=== PATIENT | female | born 1990 | race African-American/Black ===

== ENCOUNTER 2018-04-15 22:34 | Emergency (ER) | payer SELFPAY | END 2018-04-16 00:58 | disposition left against medical advice (07) | LOC: M ED 22:34 | DX: Z53.20 Procedure and treatment not carried out because of patient's decision for unspecified reasons (principal) ==

== ENCOUNTER 2018-08-05 13:43 | Outpatient (CLI) | payer OTHER, SELFPAY ==
[~2018-08-05] VITALS: Ht 157.5 cm; Wt 101.4 kg
[~2018-08-05 13:43] MED LIST: PREN1TAB26 PO
[2018-08-05 13:53] VITALS: BP 120/62
== END 2018-08-05 15:11 | disposition home or self-care (01) ==
LOC: M LDO 13:43
PROVIDERS: ATTEND Obstetrics & Gynecology
DX: O47.1 False labor at or after 37 completed weeks of gestation (principal); Z3A.39 39 weeks gestation of pregnancy
CPT/HCPCS: 59025; G0378; G0463

== ENCOUNTER 2018-08-07 05:14 | Inpatient (IN) | payer OTHER ==
[2018-08-07] VITALS (106 sets, daily range): BP systolic 95–148; BP diastolic 53–92
[2018-08-07] MEDS ORDERED: PENICILLIN G POTASSIUM IV 5 MU in D5W MINI-BAG PLUS 100 ML IV STA (06:12)
[2018-08-07] MEDS ORDERED: LACTATED RINGER'S 1000 ML IV STA (06:12)
--- NOTE | 2018-08-07 06:37 | HPEPDOC ---
Obstetrical History & Physical General Date of Admission Aug 07, 2018 at 06:08 History of Present Illness 28 yo at 39+6 weeks by LMP of 01Nov2017 c/w 1st trimester US presents to L& D with regular, painful contractions that have been worsening since 299. She denies any vaginal bleeding or discharge. She endorses excellent movement. Chief Complaint: Contractions, term Information Provided By: Patient Age: 28 : 1 Term: 0 Pre-term: 0 Abortions: 0 Livin Care Care: Good Care Dating Final EDC: Aug 08, 2018 Final EDC for Daily Update: Aug 08, 2018 Final EDC by: LMP LMP: Nov 01, 2017 1st Trimester Date: Jan 15, 2018 Antepartum Course Diagnos(e)s Depression --> sees behavioral health Obesity --> 3hr GTT normal Past Medical History Past Obstetrical History : Past Obstetrical History: Primgravida [employer] History: No pertinent history Past Medical History Medical History Obesity Depression Surgical History: [place] teeth, Other (Bartholin's cyst) Family History Significant Family History: No pertinent family hx Social History Marital Status: Other Psychosocial History: Depression * Smoker: non-smoker Alcohol: Denies Drugs: denies Imunizations Tdap status: current Influenza Status: current Allergies Coded Allergies: No Known Allergies (Unverified , 04/15/18) Medications Scheduled ( Vitamin & Minera 28-0.8 mg) 1 Tab Tab, 1 TAB PO DAILY Physical Examination Physical Examination GENERAL: Alert and oriented times three. ABDOMEN: Gravid and non-tender to touch. FETUS: Is vertex (VTX) by sterile vaginal examination (SVE) EXTREMITIES: No edema. No clonus. Laboratory Data Urine Culture: No Growth Pertinent Laboratoy Data Blood Type: O+ RBC Antibody Screen: Negative HIV: Negative Hepatitis B: Negative Hepatitis C: Unknown Rapid Plasma Reagin: Nonreactive Rubella: Immune Varicella: Immune Chlamydia/Gonorrhea: Negative Group B Streptococcus: Positive Quad Screen Test: Unknown Cystic Fibrosis: Unknown Glucose Tolerance Test: 147 (1 hr 147, normal 3hr testing) Anatomy Ultrasound Placenta Location: Anterior Normal Anatomy: Yes Placenta Previa: No Steroid Therapy Steroid Therapy: No Vaginal Examination Dilation: 4 cm Effacement: 80% Station: -1 Cervical Consistency: Soft Cervical Position: Middle Presentation: Cephalic presentation Position: Vertex (occiput) Assessment Heart Rate (FHR): 155 Variability: Moderate Accelerations: Positive Decelerations: None Tocometer Contractions: Yes Frequency: regular Duration: greater than 60 seconds Strength: palpated as moderate Assessment/Plan Assessment 28 yo at 39+6 weeks presented in active labor. Plan Admit for expectant management of labor. Apply IV fluids. PCN for GBS prophylaxis. Clear liquid diet. Patient may have epidural if desired. Anticipate . DO AHMET Pittman CHRISTOPHER J. DO Aug 07, 2018 06:37
[2018-08-07 06:58] LABS: BASO % 0.2 % (0.0-1.0); EOS % 0.3 % (0.0-3.0); HEMATOCRIT 35.5 % (36.0-47.0); HEMOGLOBIN 12.6 g/dl (12.0-15.5); LYMPH # 1.9 10^3/uL (1.5-6.5); LYMPH % 18.2 % (24.0-44.0); MEAN CORPUSCULAR HEMOGLOBIN 30.8 pg (27.0-33.0); MEAN CORPUSCULAR HGB CONC 35.5 g/dl (32.0-36.5); MEAN CORPUSCULAR VOLUME 86.8 fl (80.0-96.0); MONO # 0.8 10^3/uL (0.0-0.8); MONO % 7.5 % (0.0-5.0); NEUTROPHILS # 7.7 10^3/uL (1.8-7.7); NEUTROPHILS % 73.2 % (36.0-66.0); PLATELET COUNT, AUTOMATED 119 10^3/uL (150-450); RED BLOOD COUNT 4.09 10^6/uL (4.00-5.40); WHITE BLOOD COUNT 10.5 10^3/uL (4.0-10.0)
[2018-08-07] MEDS ORDERED: FENTANYL 2MCG/ML ROPIVACAINE 0.2% IN 0.9% NACL 100ML IVBAG As Ordered ONE (07:31)
[2018-08-07] MEDS ORDERED: OXYTOCIN 30 UNITS IN 0.9% NaCl 500ML IV BAG (J2590) As Ordered ONE (07:58)
[2018-08-07] MEDS: FENTANYL/ROPIVACAINE/NACL BAG 100 ML EPIDURAL SCH ×2 (08:58→16:43)
[2018-08-07] MEDS ORDERED: diphenhydrAMINE INJ 50MG/ML VIAL (J1200) IV PRN (09:00)
[2018-08-07] MEDS ORDERED: LACTATED RINGER'S 1000 ML IV PRN (09:00)
[2018-08-07] MEDS ORDERED: ONDANSETRON 4MG/2ML VIAL (J2405) IV PRN (09:00)
[2018-08-07] MEDS ORDERED: ePHEDrine SULFATE 25 MG/5 ML(5MG/ML) SYRINGE IV PRN (09:00)
[2018-08-07] MEDS ORDERED: EPIDURAL/PCA KEYS XX PRN (09:00)
[2018-08-07] MEDS ORDERED: NALOXONE INJ 0.4 MG/1 ML VIAL (J2310) IV PRN (09:00)
[2018-08-07] MEDS ORDERED: EPIDURAL COMMENT XX SCH (09:00)
[2018-08-07] MEDS ORDERED: REFRIGERATOR IV KEYS XX PRN (09:00)
[2018-08-07] MEDS: PENICILLIN G POTASSIUM IV 2.5 MU in APPROPRIATE DILUENT 1 EA IV SCH ×3 (10:56→18:40)
--- NOTE | 2018-08-07 12:37 | IPNPDOC ---
Text Note Date of Service The patient was seen on 08/07/18. NOTE SBAR from Dr Wood ~730. I have been in the OR and getting regular updates from the RN. Now s/p epidural and feeling well. NST is Cat2, 1 prolonged decel after epidural and some intermittent variables, mod variability. Cx 6-7/90/-1, AROM with light mec Doing well Recheck in ~2 hrs, sooner prn Sessions VS,Loyda, I+O VS, Loyda I+O Laboratory Tests 08/07/18 06:43 Red Blood Count 4.09, Mean Corpuscular Volume 86.8, Mean Corpuscular Hemoglobin 30.8, Mean Corpuscular Hemoglobin Concent 35.5, Red Cell Distribution Width 12.8, Neutrophils (%) (Auto) 73.2 H, Lymphocytes (%) (Auto) 18.2 L, Monocytes (%) (Auto) 7.5 H, Eosinophils (%) (Auto) 0.3, Basophils (%) (Auto) 0.2, Neutrophils # (Auto) 7.7, Lymphocytes # (Auto) 1.9, Monocytes # (Auto) 0.8, Eosinophils # (Auto) 0.0, Basophils # (Auto) 0.0 Vital Signs Date Time Temp Pulse Resp B/P (MAP) Pulse Ox O2 Delivery O2 Flow Rate FiO2 08/07/18 11:07 98.7 96 18 121/69 (86) SESSIONS,INDRA Blair MD Aug 07, 2018 12:37
[2018-08-07] MEDS ORDERED: ACETAMINOPHEN 325 MG TAB As Ordered ONE (14:40)
[2018-08-07] MEDS ORDERED: ACETAMINOPHEN TAB 650MG DOSE (2X325MG) PO ONE (14:45)
[2018-08-07] MEDS ORDERED: ACETAMINOPHEN 325 MG TAB PO ONE (14:45)
--- NOTE | 2018-08-07 15:42 | IPNPDOC ---
Text Note Date of Service The patient was seen on 08/07/18. NOTE NST is Cat 1, mod variability. Cx 8-9/100/0 Doing well Recheck in ~2 hrs, sooner prn Sessions VS,Loyda, I+O VSLoyda I+O Laboratory Tests 08/07/18 06:43 Red Blood Count 4.09, Mean Corpuscular Volume 86.8, Mean Corpuscular Hemoglobin 30.8, Mean Corpuscular Hemoglobin Concent 35.5, Red Cell Distribution Width 12.8, Neutrophils (%) (Auto) 73.2 H, Lymphocytes (%) (Auto) 18.2 L, Monocytes (%) (Auto) 7.5 H, Eosinophils (%) (Auto) 0.3, Basophils (%) (Auto) 0.2, Neutrophils # (Auto) 7.7, Lymphocytes # (Auto) 1.9, Monocytes # (Auto) 0.8, Eosinophils # (Auto) 0.0, Basophils # (Auto) 0.0 Vital Signs Date Time Temp Pulse Resp B/P (MAP) Pulse Ox O2 Delivery O2 Flow Rate FiO2 08/07/18 14:19 99.5 82 18 119/80 (93) SESSIONS,INDRA Blair MD Aug 07, 2018 15:42
--- NOTE | 2018-08-07 17:41 | IPNPDOC ---
Text Note Date of Service The patient was seen on 08/07/18. NOTE FHT Cat 1 Feeling more pressure C/C/+2, start pushing in 20-30 min to allow for some passive descent. Sessions VS,Loyda, I+O VS, Loyda I+O Laboratory Tests 08/07/18 06:43 Red Blood Count 4.09, Mean Corpuscular Volume 86.8, Mean Corpuscular Hemoglobin 30.8, Mean Corpuscular Hemoglobin Concent 35.5, Red Cell Distribution Width 12.8, Neutrophils (%) (Auto) 73.2 H, Lymphocytes (%) (Auto) 18.2 L, Monocytes (%) (Auto) 7.5 H, Eosinophils (%) (Auto) 0.3, Basophils (%) (Auto) 0.2, Neutrophils # (Auto) 7.7, Lymphocytes # (Auto) 1.9, Monocytes # (Auto) 0.8, Eosinophils # (Auto) 0.0, Basophils # (Auto) 0.0 Vital Signs Date Time Temp Pulse Resp B/P (MAP) Pulse Ox O2 Delivery O2 Flow Rate FiO2 08/07/18 17:10 99.0 18 08/07/18 15:57 85 124/70 (88) SESSIONS,INDRA Blair MD Aug 07, 2018 17:41
[2018-08-07] MEDS ORDERED: OXYTOCIN DRIP 30 UNITS in APPROPRIATE DILUENT 1 EA IV SCH (20:29)
[2018-08-07] MEDS ORDERED: METOCLOPRAMIDE INJ 10MG/2ML VIAL (J2765) IV PRN (20:30)
[2018-08-07] MEDS ORDERED: RHOGAM 300 MCG (1500 IU) INJ (J2790) IM SCH (20:30)
[2018-08-07] MEDS ORDERED: DIBUCAINE 1% OINTMENT 30GM TOP PRN (20:30)
[2018-08-07] MEDS ORDERED: MEASLES,MUMPS,RUBELLA VACCINE INJ (MMR-II) (90707) SC SCH (20:30)
--- NOTE | 2018-08-07 20:42 | DNPDOC ---
[facility] Delivery Note Delivery Note DATE OF DELIVERY: 2jan18@2010 PREDELIVERY DIAGNOSIS: 39 6/7 weeks' gestation and labor. POST DELIVERY DIAGNOSIS: Delivered. PROCEDURE: Spontaneous vaginal delivery MOTEL MAID: Dr. Smith ANESTHESIA: epidural ESTIMATED BLOOD LOSS: 300 mL. FINDINGS: 7 pound 13 ounce female , Score 7/8, 60 sec shoulder dystocia DELIVERY SUMMARY: Good effort, tight fit. No delay of the vtx but very little room thereafter. Meliton done and stool called for but suprapubic not needed. Left shoulder anterior. Cord C/C by FOB. Cord blood. To abd first then right to warmer for resuscitation. On the warmer moving both arms. No lacerations other than bilat superficial inner labial, not bleeding and not closed. Placenta intact. Fundal massage. Pit going 999. Yeison SMITH,INDRA Blair MD Aug 07, 2018 20:42
[2018-08-07] MEDS: DOCUSATE SODIUM 100 MG CAP PO SCH (21:21)
[2018-08-07] MEDS: IBUPROFEN 800 MG TAB PO PRN (21:22)
[2018-08-07] MEDS: ACETAMINOPHEN TAB 650MG DOSE (2X325MG) PO PRN (23:45)
[2018-08-08] MEDS: IBUPROFEN 800 MG TAB PO PRN ×2 (05:44→18:30)
[2018-08-08 06:40] VITALS: BP 118/68
--- NOTE | 2018-08-08 07:53 | IPNPDOC ---
Text Note Date of Service The patient was seen on 08/08/18. NOTE PPD1 States feeling well, pain controlled with prescribed meds, significant uterine cramping noted. Baby bonding and feeding well. No heavy VB. Lochia slowing. Ambulating and voiding well. Tolerating PO without issues. VSSAF NAD A&O RRR CTAB LE no C/C/E Ut at U-2, firm a/p: Doing well. Cont routine care. D/C likely tomorrow. Sessions Loyda RICHARD, I+O VSLoyda I+O Vital Signs Date Time Temp Pulse Resp B/P (MAP) Pulse Ox O2 Delivery O2 Flow Rate FiO2 08/08/18 06:40 98.8 75 18 118/68 (85) Room Air I&O- Last 24 Hours up to 6 AM0 08/08/18 06:00 Intake Total 5245.1 ml Output Total 3000 ml Balance 2245.1 ml INDRA SMITH MD Aug 08, 2018 07:52
[2018-08-08] MEDS: DOCUSATE SODIUM 100 MG CAP PO SCH ×2 (09:00→20:53)
[2018-08-08] MEDS: PRENATAL VITAMINS CHEWABLE TABLET PO SCH (09:36)
[2018-08-08] MEDS: ACETAMINOPHEN TAB 650MG DOSE (2X325MG) PO PRN ×2 (12:36→20:35)
[2018-08-08 18:00] VITALS: BP 119/73
[2018-08-09] MEDS: ACETAMINOPHEN TAB 650MG DOSE (2X325MG) PO PRN ×2 (00:36→07:35)
[2018-08-09] MEDS: IBUPROFEN 800 MG TAB PO PRN (03:14)
[2018-08-09 06:05] VITALS: BP 120/67
[2018-08-09] MEDS ORDERED: IBUP-1114 PO (07:23)
--- NOTE | 2018-08-09 07:24 | IPNPDOC ---
Progress Note Date of Service: Aug 09, 2018 Day#: 2 Progress Note PPD 2 SUBJECT: Miguel Ángel is a 28yo [id number] s/p on 08/07/18 after presenting in active labor, doing well day #2. Delivery only complicated by brief 60sec shoulder dystocia, apgars 7/8. She has been ambulating, voiding spontaneously without issue and tolerating regular diet. Breast feeding without issue. Reports lochia is like a normal period. Denies f/c/n/v/CP/SOB. OBJECTIVE: VITAL SIGNS: Within normal limits, afebrile. Alert and oriented times three. Abdomen: Fundus firm at U-2. Soft, NTTP. Extremities: no pain with palpation of calves ASSESSMENT: Miguel Ángel is a 28yo [id number] s/p on 08/07/18 after presenting in active labor, doing well day #2. Vitals within normal limits, afebrile, hemodynamically stable with no evidence of infection. PLAN: 1. Discharge to home today. 2. Tylenol and Motrin for pain. 3. Encourage breast feeding and ambulation. 4. Interested in Mirena for contraception 5. Routine PP visit in 6 weeks in clinic. 6. Discussed return precautions at length. Dr. Aleta Flores MD VS, I&O, 24H, Fishbone Vital Signs/I&O Vital Signs Date Time Temp Pulse Resp B/P (MAP) Pulse Ox O2 Delivery O2 Flow Rate FiO2 08/09/18 06:05 98.1 71 18 120/67 (84) Room Air Aleta Flores MD Aug 09, 2018 07:24
[2018-08-09] MEDS: PRENATAL VITAMINS CHEWABLE TABLET PO SCH (07:34)
[2018-08-09] MEDS: DOCUSATE SODIUM 100 MG CAP PO SCH (09:00)
== END 2018-08-09 11:00 | disposition home or self-care (01) | DRG 807 ==
LOC: M LDO 05:14 → M LDI 06:08 → M OBS 20:00
PROVIDERS: ADMIT Obstetrics & Gynecology; ATTEND Obstetrics & Gynecology
PROC: 10E0XZZ Delivery of Products of Conception, External Approach (ICD-10-PCS; principal; 2018-08-07)
PROC: 10907ZC Drainage of Amniotic Fluid, Therapeutic from Products of Conception, Via Natural or Artificial Opening (ICD-10-PCS; 2018-08-07)
DX: O99.214 Obesity complicating childbirth (principal); Z37.0 Single live birth; E66.9 Obesity, unspecified; O99.824 Streptococcus B carrier state complicating childbirth; O77.0 Labor and delivery complicated by meconium in amniotic fluid; O66.0 Obstructed labor due to shoulder dystocia; O99.344 Other mental disorders complicating childbirth; F32.9 Major depressive disorder, single episode, unspecified; O70.0 First degree perineal laceration during delivery; Z3A.39 39 weeks gestation of pregnancy

== ENCOUNTER 2018-12-11 22:01 | Emergency (ER) | payer OTHER ==
[~2018-12-11] VITALS: Ht 195.6 cm; Wt 93.2 kg
[~2018-12-11 22:01] MED LIST changes: +IBUP-1114 PO
[2018-12-11 22:02] VITALS: BP 120/69
--- NOTE | 2018-12-12 00:11 | REPVR ---
EXAM: US Abdomen Limited EXAM DATE/TIME: 12/11/2018 11:26 PM CLINICAL HISTORY: 28 years old, female; Abdominal pain; Periumbilical; Additional info: Umbilical pain, HX of hernia TECHNIQUE: Imaging protocol: Real-time ultrasound of the abdomen with image documentation. Examination is focused on the region of clinical interest. COMPARISON: No relevant prior studies available. FINDINGS: Soft tissues: Superior to umbilicus in the midline there is a defect in the anterior abdominal wall; at rest measuring 8.7 mm, which increases on Valsalva measuring 3.5 mm. No bowel is present within the hernia sac. Hernia containing fat measuring 1.4 x 0.4 x 1.1 cm. Hernia is a not reducible. IMPRESSION: Superior to umbilicus in the midline there is a defect in the anterior abdominal wall; at rest measuring 8.7 mm, which increases on Valsalva measuring 3.5 mm. No bowel is present within the hernia sac. Hernia containing fat measuring 1.4 x 0.4 x 1.1 cm. Hernia is a not reducible. Electronically signed by: Karla Aleman On 12/12/2018 00:10:31 AM
== END 2018-12-12 00:06 | disposition home or self-care (01) ==
LOC: M ED 22:01
DX: K43.9 Ventral hernia without obstruction or gangrene (principal)

== ENCOUNTER 2019-03-21 09:44 | Day surgery (SDC) | payer OTHER ==
[~2019-03-21] VITALS: Ht 165.1 cm; Wt 87.5 kg
[~2019-03-21 09:44] MED LIST changes: +LR 1,000 ML IV ONE
[2019-03-21 10:54] LABS: URINE PREG TEST NEGATIVE (NEGATIVE)
[2019-03-21] MEDS ORDERED: BUPIVACAINE/EPIN 0.25% 30 ML VIAL As Ordered ONE (11:13)
[2019-03-21] MEDS ORDERED: LIDOCAINE 2% INJ 100 MG/5 ML SDV (FOR ANES.) As Ordered ONE (11:47)
[2019-03-21] MEDS ORDERED: PROPOFOL 200 MG/20 ML VIAL As Ordered ONE (11:47)
[2019-03-21] MEDS ORDERED: ONDANSETRON 4MG/2ML VIAL (J2405) As Ordered ONE (11:47)
[2019-03-21] MEDS ORDERED: ROCURONIUM BROMIDE 50 MG/5 ML VIAL As Ordered ONE (11:47)
[2019-03-21] MEDS ORDERED: fentaNYL 100 MCG/2 ML INJECTION (J3010) As Ordered ONE ×2 (11:50→13:23)
[2019-03-21] MEDS ORDERED: MIDAZOLAM INJ 2 MG/2 ML VIAL (J2250) As Ordered ONE (11:50)
[2019-03-21] MEDS ORDERED: SUGAMMADEX SODIUM 500 MG/5 ML VIAL (BRIDION) As Ordered ONE (12:45)
[2019-03-21] MEDS ORDERED: KETOROLAC 60 MG/2 ML VIAL (J1885) As Ordered ONE (12:45)
[2019-03-21] MEDS: fentaNYL 100 MCG/2 ML INJECTION (J3010) IV PRN ×4 (13:24→13:44)
[2019-03-21] MEDS ORDERED: PERCOCET 5MG/325MG TAB As Ordered ONE (13:33)
[2019-03-21] MEDS ORDERED: LR 1,000 ML IV SCH (13:45)
[2019-03-21] MEDS ORDERED: ONDANSETRON 4MG/2ML VIAL (J2405) IV PRN (13:45)
[2019-03-21] MEDS ORDERED: METOCLOPRAMIDE INJ 10MG/2ML VIAL (J2765) IV PRN (13:45)
[2019-03-21] MEDS ORDERED: PERCOCET 5MG/325MG TAB PO PRN (13:45)
[2019-03-21] MEDS ORDERED: NORCO, ANEXSIA 5/325MG TABLET (HYDROcodone/ACETAMINOPHEN) PO PRN (13:45)
[2019-03-21 15:00] VITALS: BP 120/62
--- NOTE | 2019-03-26 08:51 | RO ---
DATE OF PROCEDURE: 03/21/2019 PREOPERATIVE DIAGNOSIS: Umbilical hernia. POSTOPERATIVE DIAGNOSES: Umbilical hernia and two incarcerated ventral hernias. PROCEDURE: Laparoscopic repair of umbilical and two incarcerated ventral hernias. SURGEON: Dr. Bacon LANDMEN: None. ANESTHESIA: General. ESTIMATED BLOOD LOSS (EBL): 5. COMPLICATIONS: None. INDICATIONS FOR PROCEDURE: Patient is 28-year-old female who was found to have supraumbilical midline abdominal pain and found to have an umbilical hernia on exam. Recommendation was to proceed with repair. Risks and benefits of procedure not limited to, but including, bleeding, infection, hernia formation, hernia recurrence, damage to surrounding structures, need for further surgery were discussed in detail with the patient. Informed consent was obtained and procedure planned. DESCRIPTION OF PROCEDURE: Patient brought back to operating room #2. After sufficient sedation, the abdomen was sterilely prepped and draped. Next, time-out was done to confirm proper patient and proper procedure. Following that, a 5 mm incision was made in the left upper quadrant. A Veress needle was inserted, and the abdomen was insufflated to 15 mmHg. Next, the Veress needle was removed and a 5 mm Optiview port was used to gain access to the abdomen. Once abdomen was entered, a 5 mm port was placed in the left lower quadrant. The abdomen was examined. There was an obvious umbilical hernia. This was dissected free first using the Enseal; and after this was done, dissection more superior identified a ventral hernia and a little bit further dissection superiorly up through the falciform revealed another larger ventral hernia, both of which contained incarcerated preperitoneal fat. All of this was dissected free. A 9 cm round Parietex mesh then had #0 Vicryl sutures placed on all four corners. The mesh was placed inside of the abdomen. Transfascial sutures were brought out through the abdominal wound using a Bruno-Teto needle. Once that was completed, the sutures were tied in place. The SecureStrap was then used to place two rows of tacks around the perimeter of the mesh. Once that was completed, the abdomen desufflated. Skin incisions were closed with #4-0 Vicryl subcuticular sutures. The abdomen was cleaned and dried. Steri-Strips, 4 x 4, and tape were applied, thus ending procedure.
== END 2019-03-21 15:40 | disposition home or self-care (01) ==
LOC: M SDC 09:44
PROVIDERS: ATTEND Surgery
DX: K42.9 Umbilical hernia without obstruction or gangrene (principal); K43.6 Other and unspecified ventral hernia with obstruction, without gangrene; F32.9 Major depressive disorder, single episode, unspecified
CPT/HCPCS: 49652; 84703; C1781; J0690; J1885; J2250; J2405; J3010

== ENCOUNTER 2019-05-07 01:31 | Emergency (ER) | payer OTHER ==
[~2019-05-07] VITALS: Ht 165.1 cm; Wt 86.4 kg
[~2019-05-07 01:31] MED LIST changes: -LR 1,000 ML IV ONE
[2019-05-07] MEDS ORDERED: SPIR100T3 PO (01:37)
[2019-05-07] MEDS ORDERED: METH1TAB40 PO (01:37)
[2019-05-07] MEDS ORDERED: NS 1,000 ML IV ONE (02:00)
[2019-05-07] MEDS ORDERED: MORPHINE 4 MG/ML 1ML VIAL/SYRINGE (J2270) IV ONE (02:00)
[2019-05-07 02:21] LABS: BASO % 0.2 % (0.0-1.0); EOS # 0.1 10^3/uL (0.0-0.5); EOS % 1.9 % (0.0-3.0); HEMATOCRIT 37.7 % (36.0-47.0); HEMOGLOBIN 12.9 g/dl (12.0-15.5); LYMPH # 1.8 10^3/uL (1.5-5.0); LYMPH % 31.7 % (24.0-44.0); MEAN CORPUSCULAR HEMOGLOBIN 29.6 pg (27.0-33.0); MEAN CORPUSCULAR HGB CONC 34.2 g/dl (32.0-36.5); MEAN CORPUSCULAR VOLUME 86.5 fl (80.0-96.0); MONO # 0.5 10^3/uL (0.0-0.8); MONO % 9.1 % (0.0-5.0); NEUTROPHILS # 3.3 10^3/uL (1.5-8.5); NEUTROPHILS % 56.9 % (36.0-66.0); PLATELET COUNT, AUTOMATED 187 10^3/uL (150-450); RED BLOOD COUNT 4.36 10^6/uL (4.00-5.40); WHITE BLOOD COUNT 5.8 10^3/uL (4.0-10.0)
[2019-05-07 02:37] LABS: HCG, SERUM QUALITATIVE NEGATIVE (NEGATIVE)
[2019-05-07 02:46] LABS: ALBUMIN 3.2 GM/DL (3.2-5.2); ALT/SGPT 12 U/L (12-78); BILIRUBIN,DIRECT < 0.1 MG/DL (0.0-0.2); BILIRUBIN,TOTAL 0.3 MG/DL (0.2-1.0); BLOOD UREA NITROGEN 13 MG/DL (7-18); CALCIUM LEVEL 8.8 MG/DL (8.5-10.1); CARBON DIOXIDE LEVEL 25 MEQ/L (21-32); CHLORIDE LEVEL 108 MEQ/L (98-107); GLOMERULAR FILTRATION RATE > 60.0 (>60); GLUCOSE, FASTING 98 MG/DL (70-100); LIPASE 96 U/L (73-393); POTASSIUM SERUM 4.1 MEQ/L (3.5-5.1); SODIUM LEVEL 142 MEQ/L (136-145); TOTAL PROTEIN 6.8 GM/DL (6.4-8.2)
[2019-05-07 03:51] LABS: CHLAMYDIA DNA AMPLIFICATION NEGATIVE (NEGATIVE); GC DNA AMPLIFICATION NEGATIVE (NEGATIVE)
--- NOTE | 2019-05-07 03:53 | REPVR ---
PROCEDURE INFORMATION: Exam: US Pelvis Complete, Transabdominal and US Duplex Artery and Vein, Ovaries, Complete Exam date and time: 05/07/2019 3:25 AM Clinical history: 28 years old, female; Bilateral pelvic pain. R/O ovarian torsion. TECHNIQUE: Imaging protocol: Real-time transabdominal pelvic ultrasound with image documentation. Real-time duplex ultrasound scan of the arterial and venous flow of the ovaries with B-mode, color Doppler flow and spectral waveform analysis. Complete Pelvis, Complete Duplex. COMPARISON: No relevant prior studies available. FINDINGS: Uterus/cervix: The anteverted uterus is unremarkable and measures 9.2 cm x 3.8 cm x 6.7 cm. The endometrium measures 6 mm in thickness. There is an intrauterine device in the endometrial canal, which appears appropriately positioned. Right adnexa: The right ovary is normal in appearance. No right ovarian cyst or right adnexal mass is noted. The right ovary measures 3 cm x 1.8 cm x 2.6 cm. The right ovarian volume measures 7.3 mL. The arterial and venous color Doppler flow and spectral waveforms within the right ovary are within normal limits, without evidence for right ovarian torsion. Left adnexa: The left ovary is normal in appearance. No left ovarian cyst or left adnexal mass is noted. The left ovary measures 3.1 cm x 2.5 cm x 2.1 cm. The left ovarian volume measures 8.5 mL. The arterial and venous color Doppler flow and spectral waveforms within the left ovary are within normal limits, without evidence for left ovarian torsion. Free fluid: There is a trace amount of free fluid in the pelvis. Bladder: The urinary bladder is unremarkable. IMPRESSION: 1. Normal ultrasound of the uterus and ovaries. No ovarian torsion. 2. Intrauterine device in satisfactory position in the endometrial canal. Electronically signed by: Grayson Fregoso On 05/07/2019 03:53:02 AM
[2019-05-07] MEDS ORDERED: ISOVUE-370 76% 100ML VIAL (Q9967) As Ordered ONE (04:55)
[2019-05-07] MEDS ORDERED: METAL LOCK LOOP XX ONE (05:08)
--- NOTE | 2019-05-07 05:32 | REPVR ---
PROCEDURE INFORMATION: Exam: CT Abdomen and pelvis with contrast Exam date and time: 05/07/2019 4:52 AM Clinical history: 28 years old, female; Abdominal pain; Localized; Lower; Additional info: Bilat low quadrant abd pain TECHNIQUE: Imaging protocol: Computed tomography of the abdomen and pelvis with intravenous contrast. Radiation optimization: All CT scans at this facility use at least one of these dose optimization techniques: automated exposure control; mA and/or kV adjustment per patient size (includes targeted exams where dose is matched to clinical indication); or iterative reconstruction. Contrast material: ISO; Contrast volume: 100 ml; Contrast route: AC; COMPARISON: US PELVIC NON-OB COMPLETE 05/07/2019 3:07 AM Abdomen, limited US 12/11/2018 11:22:06 PM FINDINGS: Lungs: The imaged lung bases are clear. Heart: No cardiomegaly. No pericardial effusion. Liver: Unremarkable. No liver lesion is seen. The contour of the liver is smooth. No hepatomegaly is noted. Gallbladder and bile ducts: No calcified gallstones are seen. No gallbladder wall thickening, pericholecystic fluid, or pericholecystic inflammatory changes are identified. No dilation of the intrahepatic or extrahepatic bile ducts is noted. Pancreas: Normal. No ductal dilation. Spleen: Normal. No splenomegaly. Incidental note is made of a small accessory spleen. Adrenals: Normal. No mass. Kidneys and ureters: There is a 5 mm cyst in the anterior aspect of the midpole of the right kidney for which follow-up is not necessary. No calculi are seen in the kidneys or ureters. There is no hydronephrosis or hydroureter. There are no wedge-shaped areas of low attenuation in the kidneys to suggest pyelonephritis. There is no renal abscess or perinephric fluid collection. Stomach and bowel: The stomach is decompressed, limiting its optimal evaluation. There is no evidence for a bowel obstruction, diverticulosis, diverticulitis, colitis, pneumatosis intestinalis, intussusception, volvulus, or perforated viscus. Appendix: Normal. No evidence for appendicitis. Intraperitoneal space: There is a small amount of free fluid in all 4 quadrants of the abdomen and into pelvis. No free air. Retroperitoneal space: Unremarkable. No fluid collection. No mass. Vasculature: The abdominal aorta is patent, normal in caliber, and there is no dissection. The renal arteries, celiac artery, superior mesenteric artery, inferior mesenteric artery, iliac arteries, and common femoral arteries are patent. The hepatic veins, portal veins, splenic vein, superior mesenteric vein, inferior mesenteric vein, and renal veins are patent. Lymph nodes: Normal. No enlarged lymph nodes. Bladder: There is thickening of the wall of the urinary bladder. No calculi are noted in the bladder. Reproductive: There is an intrauterine device in satisfactory position in the endometrial canal. The ovaries are unremarkable. Bones/joints: The imaged bony structures are intact. There is no suspicious osteolytic or osteoblastic lesion. There is a lumbosacral transitional vertebra, and there is broadening of both transverse processes of the lumbosacral transitional vertebra, which form pseudoarticulations with both sides of the sacrum (Castellvi type IIb lumbosacral transitional vertebra). Soft tissues: Postoperative changes are noted from a ventral hernia repair. No recurrent hernia is noted. No soft tissue fluid collection is seen. IMPRESSION: 1. Thickening of the wall of the urinary bladder, which may indicate cystitis or bladder wall hypertrophy. Correlation with urinalysis is suggested. 2. Small amount of free fluid in all 4 quadrants of the abdomen and in the pelvis. COMMENT: Consistent with the [employer] [employer]'s Incidental Findings Committee Report (J Am Gabo Radiol 2010): Unless the patient's specific circumstances suggest otherwise, any liver lesion 0.5 cm or less, any cystic kidney lesion less than 1.0 cm, and/or any adrenal lesion 1.0 cm or less not otherwise characterized in this report as possessing suspicious or indeterminate imaging features is/are highly likely to be benign and do not require follow-up imaging or biopsy. Electronically signed by: Grayson Fregoso On 05/07/2019 05:31:52 AM
[2019-05-07 06:06] VITALS: BP 113/65
== END 2019-05-07 06:17 | disposition home or self-care (01) ==
LOC: M ED 01:31
DX: R10.2 Pelvic and perineal pain (principal); N32.9 Bladder disorder, unspecified
CPT/HCPCS: 36415; 74177; 76856; 80048; 80076; 81001; 83690; 84703; 85025; 87210; 87491; 87591; 93976; 96361; 96374; 99284; J2270; Q9967

== ENCOUNTER → 2019-05-20 | Outpatient (CLI) | payer OTHER ==
[~2019-05-20] MED LIST changes: +METH1TAB40 PO; +SPIR100T3 PO
--- NOTE | 2019-05-20 11:35 | REP ---
CT brain: 05/20/2019. Indication: Head trauma. Comparison: None. Technique: Unenhanced axial images of the brain were obtained from skull base to vertex. Findings: There is no acute intracranial hemorrhage, acute cortical infarction, mass effect, hydrocephalus or acute calvarial fracture. Impression: No acute intracranial process. Unremarkable brain. Electronically Signed by Brian Padilla DO 05/20/2019 11:26 A
== END ==
LOC: M RAD 10:56
PROVIDERS: ATTEND General Practice
DX: S09.90XA Unspecified injury of head, initial encounter (principal); X58.XXXA Exposure to other specified factors, initial encounter; Y92.89 Other specified places as the place of occurrence of the external cause; Y93.9 Activity, unspecified; Y99.9 Unspecified external cause status

== ENCOUNTER → 2019-06-03 | Outpatient (REF) | payer OTHER | LOC: M LAB REF 12:55 | PROVIDERS: ATTEND Internal Medicine Endocrinology, Diabetes & Metabolism | DX: E04.1 Nontoxic single thyroid nodule (principal) ==

== ENCOUNTER 2019-10-01 17:30 | Emergency (ER) | payer OTHER ==
[~2019-10-01] VITALS: Ht 165.1 cm; Wt 82.9 kg
[2019-10-01 17:30] VITALS: BP 112/67
[2019-10-01] MEDS ORDERED: BENZONATATE 100 MG CAP PO ONE (18:00)
[2019-10-01] MEDS ORDERED: GI COCKTAIL 50ML BTL(HYOSCYAMINE/MAALOX/LIDOCAINE VISCOUS)(1:3:1) PO ONE (18:00)
[2019-10-01] MEDS ORDERED: ACETAMINOPHEN 325 MG TAB PO ONE (18:00)
[2019-10-01] MEDS ORDERED: AMOXICILLIN 500 MG CAP PO ONE (18:00)
[2019-10-01 18:20] LABS: INFLUENZA A AMPLIFICATION NEGATIVE (NEGATIVE); INFLUENZA B AMPLIFICATION NEGATIVE (NEGATIVE)
[2019-10-01] MEDS ORDERED: TESS100C PO ×2 (18:22→18:29)
[2019-10-01] MEDS ORDERED: AMOX500C PO ×2 (18:22→18:29)
[2019-10-01] MEDS ORDERED: MAGICMW SSP ×2 (18:22→18:29)
== END 2019-10-01 18:34 | disposition home or self-care (01) ==
LOC: M ED 17:30
DX: J02.0 Streptococcal pharyngitis (principal)

== ENCOUNTER 2020-06-25 19:28 | Emergency (ER) | payer OTHER ==
[~2020-06-25] VITALS: Ht 154.9 cm; Wt 72.7 kg
[~2020-06-25 19:28] MED LIST changes: +AMOX500C PO; +MAGICMW SSP; +TESS100C PO
[2020-06-25 19:29] VITALS: BP 117/68
== END 2020-06-25 21:05 | disposition home or self-care (01) ==
LOC: M ED 19:28
DX: J06.9 Acute upper respiratory infection, unspecified (principal); Z20.828 Contact with and (suspected) exposure to other viral communicable diseases; Z86.59 Personal history of other mental and behavioral disorders
CPT/HCPCS: 87880; 99284; U0003

== ENCOUNTER 2020-11-08 15:55 | Emergency (ER) | payer OTHER ==
[~2020-11-08] VITALS: Ht 165.1 cm; Wt 83.1 kg
[~2020-11-08 15:55] MED LIST changes: +METH-1164 PO; -METH1TAB40 PO
[2020-11-08] MEDS ORDERED: SPIR100T3 PO (16:34)
[2020-11-08] MEDS ORDERED: PHEN30CA2 PO (16:34)
[2020-11-08 18:45] VITALS: BP 120/75
== END 2020-11-08 18:48 | disposition home or self-care (01) ==
LOC: M ED 15:55
DX: J02.8 Acute pharyngitis due to other specified organisms (principal); R51.9 Headache, unspecified; F32.9 Major depressive disorder, single episode, unspecified; Z79.899 Other long term (current) drug therapy